=== PATIENT | female | born 1955 | race African-American/Black ===

== ENCOUNTER 2016-11-24 16:30 | Emergency (ER) | payer OTHER ==
--- NOTE | 2016-11-24 16:54 | PDOC ---
Rapid Medical Evaluation Time Seen by Provider: 11/24/16 16:52 Medical Evaluation: Allergies Allergy/AdvReac Type Severity Reaction Status Date / Time latex Allergy Verified 05/27/13 08:40 Penicillins Allergy Verified 05/27/13 08:40 I have performed a brief in-person evaluation of this patient. The patient presents with a chief complaint of: pain of left middle finger cuticle Pertinent physical exam findings: swelling, erythema and TTP of left 3rd cuticle , consistent with paronychia I have ordered the following: none The patient will proceed to the ED for further evaluation.
[2016-11-24 16:55] VITALS: BP 153/85; PULSE 81; TEMP 98; BMI 28.2
[2016-11-24] MEDS ORDERED: BACITRACIN 30 GM TUBE TOPICAL OINTMENT ONE (18:32)
[2016-11-24] MEDS ORDERED: DIPHTH,PERTUSS(ACELL),TET 0.5 ML DISP.SYRIN IM ONE (18:42)
--- NOTE | 2016-11-24 18:52 | PDOC ---
History of Present Illness - General Chief Complaint: Wound Infection Stated Complaint: INFECTION Time Seen by Provider: 11/24/16 16:52 History Source: Patient Exam Limitations: No Limitations - History of Present Illness Initial Comments: 11/24/16 19:42 Age and reports picking at her fingernails, and waking up this morning with a swollen and infected due to call to her left third digit. 11/24/16 19:52 Timing/Duration: reports: constant, getting worse Severity: Yes: moderate Location: reports: none Respiratory Risk Factors: reports: no cause identified Past History - Travel Traveled outside of the country in the last 30 days: No Close contact w/someone who was outside of country & ill: No - Past Medical History Allergies/Adverse Reactions: Allergies Allergy/AdvReac Type Severity Reaction Status Date / Time latex Allergy Verified 11/24/16 16:55 Penicillins Allergy Verified 11/24/16 16:55 Home Medications: Ambulatory Orders Enalapril Maleate [Vasotec -] 10 mg PO DAILY #0 tablet 05/27/13 Sulfamethoxazole/Trimethoprim [Bactrim *Ds*] 1 each PO BID #14 tablet 11/24/16 HTN: Yes - Psycho/Social/Smoking Cessation Hx Anxiety: Yes Suicidal Ideation: No Smoking History: Never smoked Number of Cigarettes Smoked Daily: 0 Information on smoking cessation initiated: No Review of Systems - Review of Systems Able to Perform ROS?: Yes Is the patient limited Slovak proficient: Yes Constitutional: Yes: Symptoms Reported, See HPI, Loss of Appetite, Malaise HEENTM: No: Symptoms Reported Respiratory: No: Symptoms reported Musculoskeletal: Yes: Symptoms Reported, See HPI All Other Systems: Reviewed and Negative *Physical Exam - Vital Signs Last Vital Signs Temp Pulse Resp BP Pulse Ox 98 F 81 18 153/85 98 11/24/16 16:52 11/24/16 16:52 11/24/16 16:52 11/24/16 16:52 11/24/16 16:52 - Physical Exam General Appearance: Yes: Nourished, Appropriately Dressed. No: Apparent Distress HEENT: positive: MICHEL, Normal ENT Inspection, TMs Normal, Pharynx Normal Neck: positive: Supple. negative: Lymphadenopathy (R), Lymphadenopathy (L) Respiratory/Chest: positive: Lungs Clear, Normal Breath Sounds Cardiovascular: positive: Regular Rhythm Gastrointestinal/Abdominal: positive: Soft Extremity: positive: Normal Capillary Refill, Normal Range of Motion Integumentary: positive: Normal Color, Dry, Warm, Other Neurologic: positive: flagstone layer II-XII NML intact, Fully Oriented, Alert, Normal Mood/ Affect, Normal Response, Motor Strength 5/5 Procedures - Incision and Drainage I&D Site: Left: Paronychia (left 3rd paronychia ) Anesthesia: other (benzocaine spray) Blade Size: 11 Progress Note - Progress Note Progress Note: Paronychia third left digit, incised and drained. We will soak and watch and wait for need for antibiotics. Tetanus/diphtheria/pertussis booster updated today Medical Decision Making - Medical Decision Making 11/24/16 18:57 11/24/16 19:47 11/24/16 19:51 *DC/Admit/Observation/Transfer Diagnosis at time of Disposition: Paronychia of finger Qualifiers: Laterality: left Qualified Code(s): L03.012 - Cellulitis of left finger - Discharge Dispostion Disposition: HOME Condition at time of disposition: Stable Admit: No - Prescriptions Prescriptions: Sulfamethoxazole/Trimethoprim [Bactrim *Ds*] 1 each PO BID #14 tablet - Referrals Referrals: Jeremy Preciado MD [Primary Care Provider] - - Patient Instructions Printed Discharge Instructions: DI for Paronychia Additional Instructions: Rest, keep hand elevated Avoid heavy lifting or strenuous activity until healed Soak finger every 2-3 hours while awake for the next 2-3 days to keep continue to allow drainage Reapply bacitracin ointment and bulky dressing after each soaking May use ibuprofen or Tylenol for pain relief Followup with private physician in one to 2 days for wound check as needed Return immediately to emergency department or private doctor's for worsening redness, swelling, pain, streaking Start antibiotics if finger becomes more swollen, red, purulent drainage or more painful, and Take all of antibiotics until completed Your tetanus / diphtheria/pertussis booster was updated today - Post Discharge Activity Work/School Note: Back to Work
== END 2016-11-24 19:02 | disposition home or self-care (01) ==
LOC: JERFT 16:30
PROC: 0H9GXZZ Drainage of Left Hand Skin, External Approach (ICD-10-PCS; principal; 2016-11-24)
PROC: 3E0234Z Introduction of Serum, Toxoid and Vaccine into Muscle, Percutaneous Approach (ICD-10-PCS; 2016-11-24)
DX: L03.012 Cellulitis of left finger (principal)
CPT/HCPCS: 90715; 99281-25